=== PATIENT | male | born 1960 | race Caucasian/White ===

== ENCOUNTER → 2023-12-08 | Outpatient (REF) | payer OTHER, SELFPAY | LOC: DHSLP | PROVIDERS: ATTENDING PHYSICIAN Internal Medicine; FAMILY PHYSICIAN Family Medicine | DX: G47.33 Obstructive sleep apnea (adult) (pediatric) (principal) | CPT/HCPCS: 95800 ==

== ENCOUNTER 2024-03-30 06:02 | Day surgery (SDC) | payer OTHER, SELFPAY ==
[2023-12-29 10:54] LABS: ALT (SGPT) 30 U/L (0-50); AST (SGOT) 25 U/L (17-59); Albumin 4.6 g/dl (3.5-5.0); Alkaline Phosphatase 80 U/L (38-126); Blood Urea Nitrogen 17 mg/dl (9-20); Calcium 9.5 mg/dl (8.4-10.2); Carbon Dioxide 21 mmol/L (22-30); Chloride 106 mmol/L (98-107); Glucose 121 mg/dl (70-99); Potassium 4.3 mmol/L (3.5-5.1); Sodium 136 mmol/L (135-145); Total Bilirubin 1.3 mg/dl (0.2-1.3); Total Protein 7.2 g/dl (6.3-8.2); eGFR > 60.00
[2023-12-29 11:11] LABS: % Basophils 0.7 % (0-2); % Eosinophils 1.9 % (0-6); % Immature Granulocytes 0.3 % (0-0.5); % Lymphocytes 25.7 % (20.5-51.1); % Monocytes 8.5 % (1.7-9.3); % Neutrophils 62.9 % (42.2-75.2); Absolute Basophils 0.1 10^3/uL (0-0.2); Absolute Eosinophils 0.1 10^3/uL (0-0.7); Absolute Lymphocytes 1.9 10^3/uL (1.2-3.4); Absolute Monocytes 0.6 10^3/uL (0.1-0.6); Absolute Neutrophils 4.5 10^3/uL (1.4-6.5); Hematocrit 44.5 % (39.0-52.0); Hemoglobin 14.6 g/dL (13.0-18.0); Mean Corp Hgb Conc. 32.8 g/dL (33.0-37.0); Mean Corpuscular Hgb 29.9 pg (27.0-31.0); Mean Corpuscular Volume 91.2 fL (80.0-94.0); Mean Platelet Volume 10.3 fL (7.4-10.4); Nucleated Red Blood Cells % 0 % (-); Platelet Count 241 10^3/uL (130-400); Red Blood Cell Count 4.88 10^6/uL (4.70-6.10); Red Cell Dist. Width 13.1 % (11.5-14.5); White Blood Cell Count 7.2 10^3/uL (4.8-10.8)
[2023-12-29 12:09] VITALS: BMI 31.4
[2024-03-20 09:19] VITALS: BMI 30.1
[2024-03-20 09:45] LABS: % Basophils 0.6 % (0-2); % Eosinophils 2.1 % (0-6); % Immature Granulocytes 0.2 % (0-0.5); % Lymphocytes 35.4 % (20.5-51.1); % Monocytes 9.5 % (1.7-9.3); % Neutrophils 52.2 % (42.2-75.2); Absolute Eosinophils 0.1 10^3/uL (0-0.7); Absolute Lymphocytes 1.9 10^3/uL (1.2-3.4); Absolute Monocytes 0.5 10^3/uL (0.1-0.6); Absolute Neutrophils 2.8 10^3/uL (1.4-6.5); Hematocrit 39.8 % (39.0-52.0); Hemoglobin 13.7 g/dL (13.0-18.0); Mean Corp Hgb Conc. 34.4 g/dL (33.0-37.0); Mean Corpuscular Hgb 30.4 pg (27.0-31.0); Mean Corpuscular Volume 88.4 fL (80.0-94.0); Nucleated Red Blood Cells % 0 % (-); Platelet Count 233 10^3/uL (130-400); Red Cell Dist. Width 13.2 % (11.5-14.5); White Blood Cell Count 5.3 10^3/uL (4.8-10.8)
[2024-03-20 10:06] LABS: ALT (SGPT) 34 U/L (0-50); AST (SGOT) 35 U/L (17-59); Albumin 4.6 g/dl (3.5-5.0); Alkaline Phosphatase 66 U/L (38-126); Blood Urea Nitrogen 19 mg/dl (9-20); Calcium 9.5 mg/dl (8.4-10.2); Carbon Dioxide 26 mmol/L (22-30); Chloride 103 mmol/L (98-107); Estimated Creatinine Clearance 82 ml/min; Glucose 114 mg/dl (70-99); Potassium 4.3 mmol/L (3.5-5.1); Sodium 138 mmol/L (135-145); Total Protein 7.2 g/dl (6.3-8.2); eGFR > 60.00
--- NOTE | 2024-03-20 11:55 | HPS.HSE ---
Family Physician
-
Family Physician: Govind Olguin
Chief Complaint
-
Paroxysmal atrial fibrillation.
History of Present Illness
The patient is a 63 year old male presenting today for paroxysmal atrial fibrillation. He reports a history of dyspnea, mostly notably with exertion, and palpitations secondary to this diagnosis. He is on current pharmacological therapy
with Carvedilol and Tiadylt ER. He takes Eliquis for oral anticoagulation due to a CHADS-VASc of 1. He is interested in pursuing an atrial fibrillation ablation for further arrhythmia management. He denies any complaints today such as chest pain,
shortness of breath at rest, nausea, vomiting, diarrhea, lightheadedness, dizziness, cough, sore throat, or fever.
Medical History
Past Medical History
Past Medical History: Reports Other
Additional Past Medical History:
1. Paroxysmal atrial fibrillation, pharmacological therapy with Carvedilol and Tiadylt ER; oral anticoagulation with Eliquis.
2. Hypertension.
3. Hyperlipidemia.
4. Mild mitral regurgitation.
5. Mild tricuspid regurgitation.
6. Mild obstructive sleep apnea, no current device.
7. GERD.
8. Colon polyps.
9. Diverticulosis.
10. Hemorrhoids, status post hemorrhoidectomy and hemorrhoidal banding.
11. Vertigo.
12. History of iron deficiency anemia.
13. Obesity, BMI 30.1.
Past Surgical History: Reports Other
Additional Past Surgical History:
1. Hemorrhoidectomy.
2. Hemorrhoidal banding.
3. Colonoscopy.
4. Endoscopy.
Social History
Tobacco: Non-smoker
Alcohol: Occasional
Personal:
Living: Other (He lives with his spouse and syagnn-xa-poi in a 1 story home. )
Family History
Family History: Not pertinent
Allergies / Home Medications
Allergy/Medication List:
Home medications:
1. Eliquis 5 mg p.o. twice a day.
2. Carvedilol 6.25 mg p.o. twice a day.
3. Tiadylt ER 120 mg p.o. daily.
4. Magnesium Glycinate 400 mg p.o. daily.
5. Omeprazole 20 mg p.o. daily.
6. Crestor 5 mg p.o. every other day.
7. Cholecalciferol 25 mcg p.o. daily.
8. Chromium 200 mcg p.o. daily.
9. CoQ10 100 mg p.o. daily.
10. Rkeha-C 1000 mg p.o. daily.
11. Feosol 325 mg p.o. daily as needed.
12. Glucosamine-Chondroitin 1 tablet p.o. daily.
13. MSM 1000 mg p.o. daily.
14. Multivitamin 1 tablet p.o. daily.
15. [place] 3-fish oil 1 capsule p.o. daily.
16. Metamucil 0.4 mg p.o. daily.
17. Probiotic 250 mg p.o. daily.
18. Vitamin B12 5000 mcg p.o. daily.
19. Vitamin B6 50 mg p.o. daily.
Allergies: No known allergies.
Review of Systems
-
A 12 point ROS was completed and negative except as noted: Yes
Physical Exam
Vital Signs
Blood pressure 160/68. Heart rate 60. Respirations 18. Pulse ox 98% on room air.
Height 5 feet, 8 inches. Weight 89.7 kg. BMI 30.1.
Physical Exam
General: Well Developed, Well Nourished and No Apparent Distress
HEENT: NormoCephalic, Moist mucous membranes, Atraumatic and PERRLA
Respiratory: Clear
Cardiac: Regular Rhythm
GI: Soft, Non Tender, Non Distended and Other (Obese. )
Musculoskeletal: No Edema and Normal Gait & Station
Skin: Warm and Dry
Neuro: AO x 3 and Nonfocal/grossly intact
Laboratory Results
-
03/20/24 09:08
03/20/24 09:08
Laboratory Results
Total Bilirubin 1.0 mg/dl (0.2-1.3) 03/20/24 09:08
AST 35 U/L (17-59) 03/20/24 09:08
ALT 34 U/L (0-50) 03/20/24 09:08
Alkaline Phosphatase 66 U/L (38-126) 03/20/24 09:08
Type and screen O positive.
EKG 03/20/2024: Normal sinus rhythm.
Echocardiogram 05/26/2021: Ejection fraction is 65-70%. No regional wall motion abnormalities are seen. Normal diastolic function. Normal right ventricular size and function. Mitral valve opens normally. Mild mitral regurgitation. Aortic valve opens
normally. Trileaflet aortic valve. Trace aortic regurgitation. Mild tricuspid regurgitation. Estimated pulmonary artery pressure of 25-30 mmHg. The IVC is of normal size but demonstrates blunted respiratory variation.
Impression/Plan
-
IMPRESSION/PLAN:
1. Paroxysmal atrial fibrillation: The patient is in need of an atrial fibrillation ablation with Dr. Kings Cornell on 03/29/2024. The benefits and risks of the procedure have been explained to the patient. The patient understands these risks and
wishes to proceed. He is aware to continue his Eliquis up until the night before his procedure unless he is otherwise specified by his surgeon.
[2024-03-30] VITALS (13 sets, daily range): BP systolic 128–182; BP diastolic 73–92; BMI 30.4
--- NOTE | 2024-03-30 09:46 | ITS.CL.ABL ---
B[employer] Worker - Ablation
Ablation
Procedure Report:
AFIB ablation:
Mr. Dueñas is a very pleasant 63 yr old gentleman with medical history significant for symptomatic paroxysmal atrial fibrillation who is here in the EP lab for atrial fibrillation ablation
Date of Procedure:
03/30/2024
Indications:
Symptomatic atrial fibrillation
Pre-Operative Diagnosis:
Paroxysmal Atrial fibrillation
Post-Operative Diagnosis:
Paroxysmal Atrial fibrillation
Procedure Performed:
Atrial fibrillation ablation with wide area circumferential ablation (WACA) approach for pulmonary vein isolation
Performing Physician:
Kings Cornell MD
Assistants:
EP staff
Anesthesia:
See anesthesia records
Detailed Description of the Procedure:
Written informed consent was obtained from the patient after a full explanation of the risks and benefits of the procedure including the risks of sedation and anesthesia.
The patient was brought to the electrophysiology laboratory in stable condition in fasting state. Continuous electrocardiographic and hemodynamic monitoring was initiated.
The initial rhythm was normal sinus rhythm.
The procedure site was meticulously prepared with surgical scrub and allowed to dry with no pooling. Sterile draping was applied to cover the procedure site. The image intensifier was draped with sterile bag and positioned over the patient. After
infusion of local anesthetic, vascular access was obtained under ultrasound guidance and sheaths were placed over guide wire as detailed below.
Sheath and Catheter Placement:
In the right femoral vein, an 8-Kenyan sheath was placed for use during the ablation procedure. A second 9-Fr sheath was placed for use during intracardiac echo procedure.
The sheaths were upgraded as needed during the case. Intracardiac catheters were positioned using direct fluoroscopic guidance.� ICE catheter was placed in RA. The following catheters / sheaths were placed
Sheaths:
��������������� Agilis sheath in right femoral vein upgraded from 8Fr in right femoral vein
��������������� 9Fr in right femoral vein
Catheters:
������������� Biosense Mcghee Thermacool STSF bidirectional (D/F) - at locations of HRA, RV, LA and LV.
������������� Pentaray catheter � at locations of RA and LA
������������� ICE catheter - at locations of RA, SVC, and RV.
Intracardiac ECHO:
An 8-Kenyan AcuNav intracardiac ECHO (ICE) probe was advanced through the 9-Kenyan sheath in the femoral vein into the right atrium under fluoroscopic and ICE ultrasound image guidance and a baseline ECHO study was performed. The left atrial size
was normal. There was trace tricuspid regurgitation. The aortic valve was grossly normal. There was normal left ventricular size and function. There was a trace pericardial effusion. The ARNOLD has normal velocities noted on Doppler. All the four veins
were identified and good flow noted.
During the procedure, ICE was used for monitoring of complications, guidance of trans-septal puncture, monitor the catheter position and tracking ablation lesions. No change in the pericardial space noted throughout the procedure.
Trans-septal Puncture:
Heparin was initiated and infused to maintain appropriate ACT.
A J-tipped guidewire was advanced through the 8-Kenyan sheath in the right femoral vein into the superior vena cava under fluoroscopic and ICE guidance. The 8-Kenyan sheath was exchanged for an Agilis sheath which was advanced into the superior vena
cava. A BRK needle was advanced until the tip was slightly behind the tip of the dilator inside the Agilis. The apparatus was withdrawn until it was in contact with the fossa ovalis. The position was adjusted based on fluoroscopy and ultrasound
images from ICE. Under fluoroscopic, hemodynamic and ICE ultrasound guidance, left atrium was cannulated by advancing the needle. Once atrial septum was cannulated, the needle was pulled back and a BMW guide wire was advanced through the needle into
the left atrium. The guide wire was advanced into the left superior pulmonary vein. Both the sheath and the dilator was advanced into the left atrium. The dilator with the needle was withdrawn. Blood was aspirated from the Agilis sheath and arterial
blood confirmed. The sheath was flushed. Saline injection noted into the left atrium on ICE. The pressure waveform was checked ad LA pressure measured. The penta-ray catheter was advanced in the Agilis sheath into the left pulmonary vein.
The 3-D mapping was done and then the penta-ray was switched to ablation catheter and back to penta-ray as needed.
3D Electroanatomic Mapping:
Using the Pentaray catheter advanced through Agilis sheath into the left atrium, an electroanatomic map (EAM) of the left atrium was created using [employer] Carto mapping system. The map was used for localization of catheter position and
tacking of ablation lesions. The EAM of the left atrium showed 4 pulmonary veins with all four electrically connected to the body the LA. It showed no significant scar on the posterior wall of the LA. The LA was normal in size.
Following the EAM, preparations were made for ablation.
Phrenic nerve stimulation attempt:
The right sided pulmonary veins were identified and the anterior antrum and the deep anterior locations of the PVs were check with high output stimulation that showed no phrenic nerve capture in any of the potential ablation areas. The whole of the
anterior wall was mapped and the deep veins were also tested and once no sign of phrenic capture noted, a design line was created through the areas of tested antral myocardium for ablation lesions.
Ablation:
Pulmonary vein Isolation:
Radiofrequency ablation was performed using an open irrigation, force-sensing 3.5mm radiofrequency ablation catheter (ThermocoSavage IO STSF) by completing the circumferential lesions around the left and right pulmonary veins achieving pulmonary vein
isolation.
All the ablation lesions were guided by the Thinker Thing SURPOINT module with the posterior lesions were limited to 45 villa for SURPOINT lesion index goal of 400 and anterior wall lesions were limited to SURPOINT index goal of 450.
The esophagus was noted to be on the right side of the LA near the PV antra based on the locations of the esophageal temperature probe. Ablation was stopped for any temperature increase of 0.1 degree C. Max esophageal temperature was 39.2 briefly
with quick drop (baseline 37)
EP study / Confirmation of the PVI and bidirectional block:
Following achievement of entrance block at the pulmonary veins, pacing from the pentaray catheter in each of the four veins at 10 milliamps for 2 milliseconds showed entrance and exit block. All PVI were rechecked at the end of the case and remained
isolated with dissociated and local capture with pacing. Entrance and exit block were demonstrated in all veins.
The LA was mapped with Carto EAM in sinus rhythm confirming the line of block at the ablation lesions lines.
Sinus Node Function: The sinus node functions are within acceptable normal range.
The AV staci functions are deemed within normal range.
The mitral annulus was mapped and no sign of accessory pathway was noted.
Arrhythmia Induction:
No sustained arrhythmia was induced at the end of the study.�
Procedure End
ICE study was done again that showed no epicardial accumulation. No complications noted.
Following the completion of the EP study, catheters were removed. Protamine 50 mg was given at the end of the procedure and ACT was checked repeatedly. The sheaths were removed and hemostasis achieved with �VASCADE� and manual compression after
acceptable ACT is achieved.
Left atrial Pressure:
Pre-Procedure: Mean LA pressure was 9mmHg
Post-Procedure: Mean LA pressure was 10mmHg
Post-Procedure: Mean RA pressure was 8mmHg
Estimated Blood loss:
<10 cc
Specimens Removed:
None.
Implants / Devices:
None
Urine output:
None
Packs / Drains/ Tubes:
None
Instrument / Sponge Count Correct:
Yes
Complications of the Procedure:
None
Condition of Patient at Time of Transfer:
Hemodynamically stable with no neurological or vascular compromise.
Summary:
Successful atrial fibrillation ablation with circumferential bidirectional line of block at pulmonary vein antra (Pulmonary vein isolation)
[2024-03-30] MEDS: ANESTHETIC LOZENGE 1 LOZENGE PO (10:08)
--- NOTE | 2024-03-30 12:38 | W.PN.UPDATE ---
Update Note
Progress Note Update
Pt seen post PVI. Right groin site with vascade closure, no ht/bleeding. OOB ambulating, urinating without difficulty. Post EKG NSR 70s, no acute changes. Resume eliquis today. Continue other meds as before. Followup at [facility] arranged. Home today if
groin site/tele remain stable.
[2024-03-30 15:12] LABS: ACT-LR - POC 318 Seconds (116-155)
[2024-03-30 15:12] LABS: ACT-LR - POC 347 Seconds (116-155)
== END 2024-03-30 12:40 | disposition home or self-care (01) ==
LOC: CATH 06:02
PROVIDERS: ATTENDING PHYSICIAN Internal Medicine Cardiovascular Disease; FAMILY PHYSICIAN Family Medicine; OTHER PHYSICIAN Physician Assistant
DX: I48.0 Paroxysmal atrial fibrillation (principal); I10 Essential (primary) hypertension; E78.5 Hyperlipidemia, unspecified; R06.09 Other forms of dyspnea; I08.1 Rheumatic disorders of both mitral and tricuspid valves; G47.33 Obstructive sleep apnea (adult) (pediatric); K21.9 Gastro-esophageal reflux disease without esophagitis; Z79.01 Long term (current) use of anticoagulants
CPT/HCPCS: C1769; C1732; C1766; C1892; C1759; 36415; 76937; 80053; 85025; 85347; 86850; 86900; 86901; 93005; 93656; C1760

== ENCOUNTER 2025-01-22 14:19 | Emergency (ER) | payer OTHER, SELFPAY ==
[2025-01-22] VITALS (8 sets, daily range): BP systolic 173–205; BP diastolic 94–128
[2025-01-22 14:59] LABS: ALT (SGPT) 25 U/L (0-50); AST (SGOT) 28 U/L (17-59); Albumin 4.7 g/dl (3.5-5.0); Alkaline Phosphatase 67 U/L (38-126); Blood Urea Nitrogen 19 mg/dl (9-20); Calcium 9.9 mg/dl (8.4-10.2); Carbon Dioxide 26 mmol/L (22-30); Chloride 105 mmol/L (98-107); Glucose 105 mg/dl (70-99); Potassium 4.5 mmol/L (3.5-5.1); Sodium 142 mmol/L (135-145); Total Protein 7.8 g/dl (6.3-8.2); eGFR > 60.00
[2025-01-22 15:07] LABS: % Basophils 0.7 % (0-2); % Eosinophils 1.7 % (0-6); % Immature Granulocytes 0.1 % (0-0.5); % Lymphocytes 20.4 % (20.5-51.1); % Neutrophils 70.1 % (42.2-75.2); Absolute Basophils 0.1 10^3/uL (0-0.2); Absolute Eosinophils 0.1 10^3/uL (0-0.7); Absolute Lymphocytes 1.6 10^3/uL (1.2-3.4); Absolute Monocytes 0.5 10^3/uL (0.1-0.6); Absolute Neutrophils 5.4 10^3/uL (1.4-6.5); Hematocrit 45.2 % (39.0-52.0); Hemoglobin 15.4 g/dL (13.0-18.0); Mean Corp Hgb Conc. 34.1 g/dL (33.0-37.0); Mean Corpuscular Hgb 30.1 pg (27.0-31.0); Mean Corpuscular Volume 88.3 fL (80.0-94.0); Mean Platelet Volume 9.6 fL (7.4-10.4); Nucleated Red Blood Cells % 0 % (-); Platelet Count 255 10^3/uL (130-400); Red Blood Cell Count 5.12 10^6/uL (4.70-6.10); Red Cell Dist. Width 12.5 % (11.5-14.5); White Blood Cell Count 7.7 10^3/uL (4.8-10.8)
--- NOTE | 2025-01-22 15:52 | EDRN ---
Meka Metcalf in room w/pt at this time.
--- NOTE | 2025-01-22 16:00 | ED.GENMED ---
History of Present Illness
General
Chief Complaint: Visual Problem
Source: patient
Time Seen by Provider: 01/22/25 15:46
History of Present Illness
History of Present Illness:
64-year-old male presents to the emergency room complaining of blurred vision, pulsating sensation in his temples particular the left. This has been going on for about 1 week. Today the patient felt his vision was a little bit more blurry while
driving to the golf course. He became concerned when golfing because he was not hitting the balls as well as he normally does. He denies any focal weakness numbness or tingling. He just feels off. He does normally wear corrective glasses when
driving and his vision is normally quite good so this is why he noticed his vision was blurry. He denies any nausea, vomiting, diarrhea, chest pain or shortness of breath. He does have a mild frontal headache. Patient states that he recently saw
his filter cleaner and his dose of carvedilol was reduced from 25 mg twice a day to 12.5 mg twice a day. The dose was changed because he feels extremely weak on the higher dose. Patient also has a history of atrial fibrillation for which he had an
ablation. He is currently taking Eliquis. He had been on diltiazem but this was discontinued as well.
Past History
Past History
ED Past Medical History: Arrthythmia, HTN, Hypercholesterolemia and Other
ED Past Surgical History: None
Social History
Tobacco: Non-smoker
Alcohol: Occasional
Drug: None
Personal:
Living: with family
Employment: Employed
Phy Exam
Physical Exam
Physical Exam:
General: Awake, Alert, Oriented X3. No acute distress.
Vitals: Hypertensive
Head: Atraumatic
Eyes: Pupils equal, EOMI
Throat: Airway intact, no exudates
Neck: Trachea midline
Lungs: Clear and equal b/l
Heart: Regular rate, no murmurs
Abd: Soft, Nontender, No pulsatile mass
Neuro: Cranial nerves intact, muscle strength equal bilaterally, cerebellar exam normal
Skin: Warm, dry, no rash
Extremities: pulses equal b/l, no edema
Course
Orders/Labs/Results
Orders:
Orders
01/22/25 14:26
Electrocardiogram (*1) Urgent
Reason for Study: Hypertension, Benign
CT Head W/o Iv Contrast Urgent
Comment:
Reason For Exam: blurry vision
EKG- Treatment ONCE
01/22/25 14:34
Complete Blood Count/With Diff Urgent
Comprehensive Metabolic Panel Urgent
01/22/25 16:36
Lisinopril [Zestril] 10 mg PO NOW STA
Abnormal Lab Results
01/22/25
14:34
Lymphocytes % 20.4 L %
(20.5-51.1)
Glucose 105 H mg/dl
(70-99)
01/22/25 14:34
01/22/25 14:34
Vital Signs
Initial and Last Documented VS:
Initial Vital Signs
Temp Pulse Resp BP Pulse Ox
98.4 F 94 16 197/128 96
01/22/25 14:21 01/22/25 14:21 01/22/25 14:21 01/22/25 14:21 01/22/25 14:21
Last Documented Vital Signs
Temp Pulse Resp BP Pulse Ox
98.4 F 81 12 189/98 96
01/22/25 14:21 01/22/25 17:30 01/22/25 17:30 01/22/25 17:30 01/22/25 17:30
MDM/Problems Addressed
Differential Diagnosis Includes:
Uncontrolled hypertension, hypertensive emergency, renal failure, intracranial hemorrhage or mass
MDM/Problems Addressed:
Patient presents concerned about his elevated blood pressure. BP was quite elevated on arrival here and has remained at least moderately elevated. His blood pressure did moderate to a systolic in the 160s to 170s presented to stay. He does not
have any evidence of end-organ damage. His CBC is normal. His chemistries are normal. Troponin is within normal limits x 2. CT of the head was obtained which showed no acute abnormality. Patient had recently decreased his medications due to
side effects. Will start lisinopril 10 mg for now until he can follow-up with his filter cleaner. I suspect he will tolerate this better as it should not affect heart rate is much.
Chronic conditions affecting care: HTN
*Radiology
Radiology exam reviewed: radiology read reviewed
*Pulse Oximetry
Patient hypoxic: no
*EKG
Heart Rate: 89
Rate: normal
Rhythm: sinus
Anderson: normal axis
Interval: normal interval
QRS Pattern: normal QRS
Ischemia: no ischemia
*Chemical Production Engineer Interpretation
Rate: normal
Interpretation: normal
Heart Rate: 89
Rhythm: sinus
*Critical Care Note
Total Time (30-74mins, 75-104mins- exclusive of procedures): Not Applicable
ED Attending Note
-
Portions of this chart may have been created with voice recognition software.� Occasional wrong word or��sound alike� substitutions may have occurred due to the inherent limitations of voice recognition software.
Discharge Plan
Departure
Patient Disposition: Home (Routine Discharge)
Date of Disposition: 01/22/25
Time of Disposition: 17:30
Patient with high blood pressure during this ER visit?: Yes
Condition: Good
Discharge Problem:
Uncontrolled hypertension, Headache
Instructions: Headache, Adult (DC), BLOOD PRESSURE
Prescriptions:
New
lisinopril 10 mg tablet
10 mg PO DAILY Qty: 30 0RF
No Action
omeprazole 20 MG capsule,delayed release(DR/EC)
20 mg PO DAILY
multivitamin [One-A-Day Essential] 1 EACH tablet
1 ea PO DAILY
Vitamin B-6 200 MG tablet
50 mg PO DAILY
Saccharomyces boulardii [Probiotic (S.boulardii)] 250 MG capsule
250 mg PO DAILY
omega 8-iig-bmd-fish oil 1 EACH capsule
1 cap PO DAILY
pehbykwclbj-yfotrmkysdb-xic D3 1 EACH tablet
1 ea PO DAILY
Rekha-C 1,000 mg Tablet
1,000 mg PO DAILY
rosuvastatin [Crestor] 5 mg Tablet
5 mg PO Q48H
Patient Comments:
HS
Eliquis 5 mg Tablet
5 mg PO BID 30 Days Qty: 60 0RF
carvedilol [Coreg] 6.25 mg tablet
6.25 mg PO BID 30 Days Qty: 60 0RF
coQ10 (liposomal ubiquinol)
100 mg PO DAILY
methylsulfonylmethane [MSM] 1,000 mg Capsule
1,000 mg PO DAILY
Vitamin B-12
5,000 mcg PO DAILY
chromium
200 mcg PO DAILY
diltiazem HCl [Tiadylt ER] 120 mg Capsule,Extended Release 24 Hr
120 mg PO DAILY
ferrous sulfate [Feosol] 325 mg (65 mg iron) Tablet
325 mg PO DAILYPRN PRN (Reason: iron deficiency)
cholecalciferol (vitamin D3) 25 mcg (1,000 unit) Tablet
25 mcg PO DAILY
magnesium glycinate 100 mg Tablet
400 mg PO DAILY
psyllium husk [Metamucil] 0.4 gram Capsule
0.4 g PO DAILY
Referrals:
Govind Olguin MD [Family Provider] -
Ulises Pimentel DO [Active] -
Activity Restrictions/Additional Instructions:
Please follow up with Dr. Olguin and Dr. Ren
Interventions
Interventions:
*Risk Screen - Suicide Last Done: 01/22/25 16:25
*General Assessment Last Done: 01/22/25 16:25
*Neglect/Abuse Screening Last Done: 01/22/25 16:25
*ED- Fall Risk Assessment Last Done: 01/22/25 16:25
*ED COVID-19 Vaccine History Last Done: 01/22/25 16:25
*Nursing Disposition Last Done: 01/22/25 17:54
ED- Neurological Assessment Last Done: 01/22/25 16:47
ED-EENT Assessment Last Done: 01/22/25 16:57
ED Swallowing Screen Last Done: 01/22/25 16:40
Discharge Date and Time
Discharge Date/Time: 01/22/25 17:55
Print Language: AZERI
--- NOTE | 2025-01-22 16:34 | EDRN ---
Addendum entered by Orin Alonzo RN 01/22/25 16:36:
Pt adds a feeling in head like sinus pressure.
Original Note:
Pt states he arrives for feeling in his L [employer]aritan that was a pulsation that started a week or so ago that would come and go. Pt states today when golfing w/ vision getting sl blurrier than normal. Pt unable to hit the ball as he normally can.
[2025-01-22] MEDS: ZESTRIL 10 MG PO (16:45)
--- NOTE | 2025-01-22 17:25 | EDRN ---
Dr. Ackerman in room w/pt at this time.
== END 2025-01-22 17:55 | disposition home or self-care (01) ==
LOC: EMR 14:19
PROVIDERS: Emergency Medicine; EMERGENCY PHYSICIAN Emergency Medicine; FAMILY PHYSICIAN Family Medicine
DX: I10 Essential (primary) hypertension (principal); R51.9 Headache, unspecified; E78.00 Pure hypercholesterolemia, unspecified; I48.91 Unspecified atrial fibrillation; Z79.01 Long term (current) use of anticoagulants
CPT/HCPCS: 99284; 70450; 80053; 85025; 93005